=== PATIENT | female | born 1990 | race Caucasian/White ===

== ENCOUNTER 2021-07-03 22:27 | Outpatient (CLI) | payer OTHER ==
[2021-07-04 00:05] VITALS: BP 130/77; PULSE 64; RESP 16; TEMP 97.7
--- NOTE | 2021-07-13 11:14 | P.MSEPDOC ---
Presenting Problems - Arrival Data Date of Arrival on Unit: 07/03/21 Time of Arrival on Unit: 22:30 Mode of Transport: Ambulatory - Complaint OB-Reason for Admission/Chief Complaint: Possible Onset of Labor Comment: contractions since 1399 Medical History - Information : 2 Para: 1 Term: 1 : 0 Abortions: Spontaneous or Elective: 0 Number of Living Children: 1 - Gestational Age Gestational Age by ELKE (wks/days): 38 Weeks and 4 Days Review of Systems - Review of Systems Constitutional: No problems Breast: No problems ENT: No problems Cardiovascular: No problems Respiratory: No problems Gastrointestinal: No problems Genitourinary: No problems Musculoskeletal: No problems Neurological: No problems Skin: No problems Vital Signs - Temperature Temperature: 97.7 F Temperature Source: Oral - Pulse Right Sitting Pulse Rate: 64 - Respirations Respiratory Rate: 16 Oxygen Delivery Method: Room Air O2 Sat by Pulse Oximetry: 100 - Blood Pressure Right Arm Sitting Blood Pressure: 130/77 Blood Pressure Mean: 94 Blood Pressure Source: Automatic Cuff Medical Screen Scoring - Cervical Exam Dilation (cm): 1 Effacement (%): 50 Station: -2 Membranes: Intact - Uterine Contractions Frequency From (mins): 5 Frequency To (mins): 6 - Assessment - Baby A Baseline FHR: 120 Heart Rate - NICHD Category: Category I (Normal) Physician Notification - Physician Notified Physician Notified Date: 07/04/21 Physician Notified Time: 23:20 Physician: Dorothy Maciel Order Received: Yes - Notification Comment Comment: home if no cervical change Maternal Triage Index - Maternal Triage Index Presenting for scheduled procedure w/no complaint: No - Stat/Priority 1 Stat Priority 1: No - Urgent/Priority 2 Urgent Priority 2: No - Prompt/Priority 3 Prompt Priority 3: No - Non-Urgent/Priority 4 Non-Urgent Priority 4: Yes Criteria Met for Priority 4: contractions since 1399 Disposition - Disposition OB Disposition: Discharge to home, Written follow up instructions reviewed Discharge Date: 07/03/21 Discharge Time: 23:55 I agree with the RN Medical Screening Exam: Yes Case reviewed; plan agreed upon as documented in EMR&OBIX.: Yes Diagnosis: False labor
== END 2021-07-03 23:55 | disposition home or self-care (01) ==
LOC: FBPOP 22:27
PROVIDERS: ATTEND Obstetrics & Gynecology
DX: O47.1 False labor at or after 37 completed weeks of gestation (principal); Z3A.38 38 weeks gestation of pregnancy
CPT/HCPCS: 59025; 99213

== ENCOUNTER 2021-07-05 16:22 | Outpatient (CLI) | payer OTHER ==
[2021-07-05] MEDS ORDERED: LACTATED RINGERS 1,000 ML IV SCH (17:45)
[2021-07-05 18:44] VITALS: BP 126/79; PULSE 64; RESP 18; TEMP 96.8
--- NOTE | 2021-08-20 17:57 | P.MSEPDOC ---
Presenting Problems - Arrival Data Date of Arrival on Unit: 07/05/21 Time of Arrival on Unit: 16:22 Mode of Transport: Ambulatory - Complaint OB-Reason for Admission/Chief Complaint: Possible Onset of Labor Comment: pt arrives with contractions that have been on and off since . pt states they are every 2-3 minutes. Medical History - Information : 2 Para: 1 Term: 1 : 0 Abortions: Spontaneous or Elective: 0 Number of Living Children: 1 - Gestational Age Gestational Age by ELKE (wks/days): 38 Weeks and 5 Days Review of Systems - Review of Systems Constitutional: No problems Breast: No problems ENT: No problems Cardiovascular: No problems Respiratory: No problems Gastrointestinal: No problems Genitourinary: No problems Musculoskeletal: No problems Neurological: No problems Skin: No problems Vital Signs - Temperature Temperature: 96.8 F Temperature Source: Temporal Artery Scan - Pulse Right Pulse Oximetery Pulse Rate: 64 Pulse Assessment Method: Pulse Oximetry - Respirations Respiratory Rate: 18 Oxygen Delivery Method: Room Air O2 Sat by Pulse Oximetry: 100 - Blood Pressure Right Arm Blood Pressure: 126/79 Blood Pressure Mean: 94 Blood Pressure Source: Automatic Cuff Medical Screen Scoring - Cervical Exam Dilation (cm): 1.5 Effacement (%): 50 Station: -2 Membranes: Intact - Uterine Contractions Frequency From (mins): 3 Frequency To (mins): 5 Duration From (seconds): 50 Duration To (seconds): 60 Intensity: Mild Resting: Soft to palpation - Assessment - Baby A Baseline FHR: 120 Heart Rate - NICHD Category: Category I (Normal) NST: Reactive Physician Notification - Physician Notified Physician Notified Date: 07/05/21 Physician Notified Time: 17:42 Physician: Emma Dos Santos New Order Received: Yes - Notification Comment Comment: order given for IV hydration x1 Liter LR. Dr Dos Santos called again after bag infused and order received for D/C and for pt to follow up at [facility] on wednesday. Maternal Triage Index - Maternal Triage Index Presenting for scheduled procedure w/no complaint: No - Stat/Priority 1 Stat Priority 1: No - Urgent/Priority 2 Urgent Priority 2: No - Prompt/Priority 3 Prompt Priority 3: No - Non-Urgent/Priority 4 Non-Urgent Priority 4: Yes Criteria Met for Priority 4: 38 5/7 weeks gestation and early labor signs. Disposition - Disposition OB Disposition: Discharge to home Discharge Date: 07/05/21 Discharge Time: 18:30 I agree with the RN Medical Screening Exam: Yes Case reviewed; plan agreed upon as documented in EMR&OBIX.: Yes Diagnosis: FALSE LABOR AT OR AFTER 37 COMPLETED WEEKS OF GESTATION
== END 2021-07-05 18:30 | disposition home or self-care (01) ==
LOC: FBPOP 16:22
PROVIDERS: ATTEND Obstetrics & Gynecology Obstetrics
DX: O47.1 False labor at or after 37 completed weeks of gestation (principal); Z3A.38 38 weeks gestation of pregnancy
CPT/HCPCS: 59025; 99213

== ENCOUNTER 2021-07-07 06:00 | Inpatient (IN) | payer OTHER ==
[2021-07-07] MEDS ORDERED: OXYTOCIN 30 UNITS/500 ML NS 30 UNIT in SALINE 1 500ML.BAG IV SCH ×2 (06:30→16:30)
[2021-07-07] MEDS ORDERED: CARBOPROST TROMETHAMINE 250 MCG/ML 1 ML AMP IM PRN (06:30)
[2021-07-07] MEDS ORDERED: OXYTOCIN 10 UNIT/ML 1 ML VIAL IM PRN (06:30)
[2021-07-07] MEDS ORDERED: METHYLERGONOVINE 0.2 MG/ML 1 ML AMP IM PRN (06:30)
[2021-07-07] MEDS ORDERED: TERBUTALINE 1 MG/ML VIAL SQ PRN (06:30)
[2021-07-07] MEDS ORDERED: LIDOCAINE 1% (PF) 10 MG/ML (30 ML SDV) SQ PRN (06:30)
[2021-07-07] MEDS: LACTATED RINGERS 1,000 ML IV SCH ×2 (06:36→12:46)
[2021-07-07 06:55] LABS: Basophils # (A) 0.1 k/uL (0-0.2); Basophils % (A) 1 %; Eosinophils % (A) 1 %; HCT 39.7 % (34.0-46.0); HGB 13.8 gm/dL (11.4-16.0); Lymphocytes # (A) 1.4 k/uL (1.0-4.8); Lymphocytes % (A) 18 %; MCH 33.2 pg (25.0-35.0); MCHC 34.9 g/dL (31.0-37.0); MCV 95.4 fL (80.0-100.0); Mean Platelet Volume 7.5; Monocytes # (A) 0.5 k/uL (0-1.0); Monocytes % (A) 6 %; Neutrophils # (A) 5.8 k/uL (1.3-7.7); Neutrophils % (A) 74 %; Platelet Count 220 k/uL (150-450); RBC 4.16 m/uL (3.80-5.40); WBC 7.8 k/uL (3.8-10.6)
[2021-07-07] MEDS ORDERED: BUTORPHANOL 1 MG/ML 1 ML VIAL IV PRN (12:05)
[2021-07-07] MEDS ORDERED: fentaNYL (PF) 50 MCG/ML 5 ML AMP ONE (12:41)
[2021-07-07] MEDS ORDERED: SODIUM CHLORIDE 0.9% 100 ML BAG ONE (12:41)
[2021-07-07] MEDS ORDERED: ROPIVACAINE 5MG/ML 20ML VIAL ONE (12:41)
[2021-07-07] MEDS ORDERED: LANOLIN CREAM 5 GM TUBE TOPICAL PRN (16:30)
[2021-07-07] MEDS ORDERED: HYDROCORTISONE 2.5% RECTAL CREAM 30 GM TUBE RECTAL PRN (16:30)
[2021-07-07] MEDS ORDERED: ZOLPIDEM 5 MG TAB PO PRN (16:30)
[2021-07-07] MEDS ORDERED: diphenhydrAMINE 25 MG CAP PO PRN (16:30)
[2021-07-07] MEDS ORDERED: diphenhydrAMINE 50 MG CAP PO PRN (16:30)
[2021-07-07] MEDS ORDERED: BENZOCAINE/MENTHOL SPRAY 1 GM/SPRAY AEROSOL TOPICAL PRN (16:30)
[2021-07-07] MEDS ORDERED: diphenhydrAMINE 50 MG/ML 1 ML VIAL IVP PRN ×2 (16:30)
[2021-07-07] MEDS ORDERED: SIMETHICONE 80 MG CHEWABLE PO PRN (16:30)
--- NOTE | 2021-07-07 16:35 | P.PROBDLV ---
Vaginal Delivery Note - . Vaginal Delivery Note: 31-year-old 2 para 1001 at 39 0/7 weeks that presents to labor and delivery for elective induction of labor. Patient has been receiving routine care which has been essentially uncomplicated. Patient was admitted to labor and delivery and Pitocin induction of labor was begun per hospital protocol. Patient underwent amniotomy and clear fluid was obtained. Patient progressed through labor eventually becoming uncomfortable and requesting epidural placement. Epidural was placed without difficulty by the anesthesia department. Patient progressed through labor eventually progressing to complete dilation. Patient began pushing and had a normal spontaneous vaginal delivery of a viable female infant at 16:16, weight of 6 pounds 4.4 ounces, Apgars of 8 and 9 at one and 5 minutes respectively. After two-minute delayed the umbilical cord was doubly clamped and cut. Placenta was delivered spontaneously intact with a three-vessel cord being noted. On inspection the patient's vaginal vault no lacerations were appreciated. Spontaneous cry was noted at . All counts were correct 2. Patient and tolerated delivery well and are resting comfortably.
--- NOTE | 2021-07-07 16:36 | P.HPOB ---
History of Present Illness H&P Date: 07/07/21 Chief Complaint: IUP @ 39 0/7 weeks 31yo at 39 0/7 weeks, that presents for induction of labor. EDC 07/14/2021 Patient was a late transfer of care to myself. Patient was receiving routine care prior to transferring to the side of the formerly [facility]. Patient has noted good movement. Patient has noted occasional contractions to the weekend. Patient denies vaginal bleeding or loss of fluid. On blood work this patient has a blood type of A+, rubella status immune, hepatitis B surface antigen negative, HIV negative, RPR nonreactive, group beta strep culture negative Review of Systems Constitutional: Reports fatigue, Denies chills, Denies fever Ears, nose, mouth and throat: Denies headache Cardiovascular: Reports leg edema Respiratory: Denies dyspnea Gastrointestinal: Denies nausea, Denies vomiting Genitourinary: Reports Past Medical History Additional Past Medical History / Comment(s): PCOS and chiari malformation History of Any Multi-Drug Resistant Organisms: None Reported Additional Past Surgical History / Comment(s): ACL surgery and surgery related to chiari malformation Past Anesthesia/Blood Transfusion Reactions: No Reported Reaction Past Psychological History: No Psychological Hx Reported Smoking Status: Never smoker Past Alcohol Use History: None Reported Past Drug Use History: None Reported - Past Family History Mother Additional Family Medical History / Comment(s): Chiari malformation Medications and Allergies Home Medications Medication Instructions Recorded Confirmed Type Acetaminophen [Tylenol] 650 mg PO Q4H PRN 07/03/21 07/07/21 History Calcium Carbonate [Calcium] 600 mg PO DAILY 07/03/21 07/07/21 History Pnv No.95/Ferrous Fum/Folic AC 1 each PO DAILY 07/03/21 07/07/21 History [ Multivitamin Tablet] Allergies Allergy/AdvReac Type Severity Reaction Status Date / Time No Known Allergies Allergy Verified 07/07/21 06:29 Exam Osteopathic Statement: *. No significant issues noted on an osteopathic structural exam other than those noted in the History and Physical/Consult. 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 heart tones noted to be category 1 and she is monica every 3 minutes. Results Result Diagrams: 07/07/21 06:35 Assessment and Plan (1) Term Current Visit: Yes Status: Acute Code(s): Z34.90 - ENCNTR FOR SUPRVSN OF NORMAL , UNSP, UNSP TRIMESTER SNOMED Code(s): 08475612 Plan: 31-year-old at 39 0/7 weeks that presents for induction of labor. Patient is admitted to labor and delivery and Pitocin induction of labor was begun. Options for analgesia are discussed with patient including epidural and Stadol. Patient will consider. Anticipate spontaneous vaginal delivery.
[2021-07-07] MEDS: IBUPROFEN ORAL SUSP 100 MG/5 ML CUP PO SCH (17:21)
[2021-07-07] MEDS: IBUPROFEN 600 MG TAB PO SCH ×2 (17:21→19:38)
[2021-07-07] MEDS: SENNOSIDES-DOCUSATE SODIUM 1 EACH TAB PO SCH (19:38)
[2021-07-08] MEDS ORDERED: ACETAMINOPHEN TAB 325 MG TAB PO PRN (00:38)
[2021-07-08] MEDS: IBUPROFEN ORAL SUSP 100 MG/5 ML CUP PO SCH (01:48)
[2021-07-08 01:59] VITALS: RESP 16
[2021-07-08] MEDS: IBUPROFEN 600 MG TAB PO SCH ×2 (08:52→16:16)
[2021-07-08] MEDS: SENNOSIDES-DOCUSATE SODIUM 1 EACH TAB PO SCH (08:52)
--- NOTE | 2021-07-08 09:32 | P.DS ---
Providers Date of admission: 07/07/21 06:07 Expected date of discharge: 07/08/21 Attending physician: Emma Dos Santos Primary care physician: Stated None - Discharge Diagnosis(es) (1) Term Current Visit: Yes Status: Acute (2) S/P section Current Visit: Yes Status: Acute Hospital Course: 31-year-old G2 now P2 status post normal spontaneous vaginal delivery. Patient was admitted yesterday for elective induction of labor. Patient underwent Pitocin induction of labor per hospital protocol. Patient underwent amniotomy and clear fluid was obtained. Patient did become uncomfortable during labor and requested epidural placement. Epidural was placed without difficulty by the anesthesia department. Patient did progressed to complete and had a normal spontaneous vaginal delivery of a viable female at 1616, weight of 6 pounds 4.4 ounces, Apgars of 9 and 9 at one and 5 minutes respectively. No vaginal lacerations were appreciated during delivery. Patient has done well . On this day #1 she is ambulating and voiding without difficulty. She is tolerating a regular diet without nausea or vomiting. She states her pain is well-controlled. She denies concerns. She would like discharge home at 24 hours. Patient Condition at Discharge: Good Plan - Discharge Summary New Discharge Prescriptions: No Action Calcium Carbonate [Calcium] 600 mg PO DAILY Acetaminophen [Tylenol] 650 mg PO Q4H PRN PRN Reason: Pain Pnv No.95/Ferrous Fum/Folic AC [ Multivitamin Tablet] 1 each PO DAILY Discharge Medication List Acetaminophen [Tylenol] 650 mg PO Q4H PRN 07/03/21 [History] Calcium Carbonate [Calcium] 600 mg PO DAILY 07/03/21 [History] Pnv No.95/Ferrous Fum/Folic AC [ Multivitamin Tablet] 1 each PO DAILY 07/03/21 [History] Follow up Appointment(s)/Referral(s): Emma Dos Santos DO [Doctor of Osteopathic Medicine] - 4 Weeks Patient Instructions/Handouts: Vaginal Delivery (DC), Vaginal Delivery (GEN) Discharge Disposition: HOME SELF-CARE
[2021-07-08 16:14] VITALS: BP 122/71; PULSE 72; TEMP 97.8
== END 2021-07-08 18:00 | disposition home or self-care (01) | DRG 807 ==
LOC: 4FBP 06:07
PROVIDERS: ADMIT Obstetrics & Gynecology Obstetrics; ATTEND Obstetrics & Gynecology Obstetrics
PROC: 10E0XZZ Delivery of Products of Conception, External Approach (ICD-10-PCS; principal; 2021-07-07)
PROC: 10907ZC Drainage of Amniotic Fluid, Therapeutic from Products of Conception, Via Natural or Artificial Opening (ICD-10-PCS; principal; 2021-07-07)
PROC: 4A0HXCZ Measurement of Products of Conception, Cardiac Rate, External Approach (ICD-10-PCS; principal; 2021-07-07)
PROC: 3E033VJ Introduction of Other Hormone into Peripheral Vein, Percutaneous Approach (ICD-10-PCS; principal; 2021-07-07)
DX: O99.284 Endocrine, nutritional and metabolic diseases complicating childbirth (principal); Z37.0 Single live birth; O99.354 Diseases of the nervous system complicating childbirth; Q07.00 Arnold-Chiari syndrome without spina bifida or hydrocephalus; E28.2 Polycystic ovarian syndrome; Z3A.39 39 weeks gestation of pregnancy
CPT/HCPCS: 85025; 86850; 86900; 86901

== ENCOUNTER → 2022-04-01 | Outpatient (CLI) | payer OTHER ==
--- NOTE | 2022-04-01 14:34 | XR ---
EXAMINATION TYPE: XR foot complete RT DATE OF EXAM: 04/01/2022 CLINICAL HISTORY: Arthritis of first MTP joint. Pain. TECHNIQUE: Frontal, lateral, and oblique images of the right foot are obtained. COMPARISON: None FINDINGS: There is no acute fracture/dislocation evident in the right foot. Mild narrowing first met atarsophalangeal joint. Some Flexion and varus positioning distal fourth and fifth toes. The overlyin g soft tissue appears unremarkable. IMPRESSION: As above.
== END | disposition home or self-care (01) ==
LOC: RADXRMAIN 14:08
PROVIDERS: ATTEND Internal Medicine
DX: M19.079 Primary osteoarthritis, unspecified ankle and foot (principal)

== ENCOUNTER → 2022-04-15 | Outpatient (CLI) | payer OTHER ==
--- NOTE | 2022-04-15 22:12 | MR ---
EXAMINATION TYPE: MR lumbar spine wo con DATE OF EXAM: 04/15/2022 9:41 PM COMPARISON: Lumbar spine radiographs 12/18/2021.. CLINICAL INDICATION:Female, 31 years old with history of M54.11 Lumbago w/ Sciatica, Rt Side; TECHNIQUE: Multi planar, multi sequence imaging was performed utilizing: T1-weighted, T2-weighted, a nd turbo inversion recovery imaging of the lumbar spine. IV Contrast: None. FINDINGS: Alignment: The lumbar vertebral bodies have preserved heights and alignment. Cord: The conus medullaris and the distal spinal cord appear unremarkable with regards to their signa l intensity and morphology. Bones/Discs: Bone signal is within normal limits. Multilevel degenerative disc disease is noted and most pronounced at the L4 and L5. Disc desiccation at L5-S1 L1-L2: No evidence of significant spinal canal stenosis or neural foraminal stenosis. L2-L3: No evidence of significant spinal canal stenosis or neural foraminal stenosis. L3-L4: No evidence of significant spinal canal stenosis or neural foraminal stenosis. L4-L5: Central protrusion without significant spinal canal stenosis. The neural foramen are patent. L5-S1: Disc bulge and facet joint arthropathy result in mild spinal canal and mild bilateral neural f oraminal stenosis. Other findings: None. IMPRESSION: 1. No evidence of significant spinal canal stenosis or neural foraminal stenosis. 2. L4-L5 central disc herniation without significant spinal canal stenosis. The neural foramen are p atent.
== END | disposition home or self-care (01) ==
LOC: RADMRIMAIN 09:18
PROVIDERS: ATTEND Internal Medicine
DX: M51.16 Intervertebral disc disorders with radiculopathy, lumbar region (principal)
CPT/HCPCS: 72148

== ENCOUNTER 2022-09-22 00:56 | Emergency (ER) | payer OTHER ==
[2022-09-22 01:03] VITALS: RESP 18
[2022-09-22] MEDS ORDERED: KETOROLAC 15 MG/ML 1 ML VIAL IVP STA (03:47)
[2022-09-22 04:34] LABS: Appearance,Urine Clear (Clear); Basophils % (A) 0 %; Bilirubin,Urine Negative (Negative); Blood,Urine Negative (Negative); Color,Urine Light Yellow; Eosinophils # (A) 0.1 k/uL (0-0.7); Eosinophils % (A) 1 %; Glucose,Urine (UA) Negative (Negative); HCT 41.7 % (34.0-46.0); HGB 14.5 gm/dL (11.4-16.0); Ketones,Urine Negative (Negative); Leukocyte Esterase,Urine Negative (Negative); Lymphocytes # (A) 0.8 k/uL (1.0-4.8); Lymphocytes % (A) 13 %; MCH 31.6 pg (25.0-35.0); MCHC 34.7 g/dL (31.0-37.0); MCV 91.1 fL (80.0-100.0); Mean Platelet Volume 7.3; Monocytes # (A) 0.3 k/uL (0-1.0); Monocytes % (A) 5 %; Neutrophils # (A) 4.7 k/uL (1.3-7.7); Neutrophils % (A) 79 %; Nitrite,Urine Negative (Negative); PH, Urine 6.5 (5.0-8.0); Platelet Count 257 k/uL (150-450); Protein,Urine Negative (Negative); RBC 4.57 m/uL (3.80-5.40); RDW 11.9 % (11.5-15.5); Specific Gravity,Urine 1.016 (1.001-1.035); Urobilinogen,Urine <2.0 mg/dL (<2.0)
[2022-09-22 04:49] LABS: ALT 15 U/L (4-34); AST 21 U/L (14-36); African American GFR (CKD) >90 (>60 ml/min/1.73 sqM); Alkaline Phosphatase 62 U/L (38-126); Anion Gap 8 mmol/L; Blood Urea Nitrogen 10 mg/dL (7-17); Calcium 8.8 mg/dL (8.4-10.2); Carbon Dioxide 26 mmol/L (22-30); Chloride 100 mmol/L (98-107); Glucose 109 mg/dL (74-99); Lipase 88 U/L (23-300); Magnesium 1.8 mg/dL (1.6-2.3); Non-African American GFR(CKD) >90 (>60 ml/min/1.73 sqM); Potassium 4.4 mmol/L (3.5-5.1); Sodium 134 mmol/L (137-145); Total Bilirubin 0.4 mg/dL (0.2-1.3); Total Protein 6.7 g/dL (6.3-8.2)
--- NOTE | 2022-09-22 04:51 | ED ---
General Adult HPI - General Chief complaint: Abdominal Pain Stated complaint: ABD PAIN Time Seen by Provider: 09/22/22 03:21 Source: patient Mode of arrival: ambulatory Limitations: no limitations - History of Present Illness Initial comments: This is a 32-year-old female with no past medical history presents emergency department for right lower quadrant abdominal pain. The patient stated over the last 24 hours she had cramping in the lower center part of her abdomen that is now radiated to the right lower quadrant. The patient stated associated nausea without vomiting. The patient stated that the pain has not improved therefore she came to the emergency department for further evaluation and management. The patient was otherwise resting in bed comfortably. The patient denied any fevers and chills. The patient stated that she has never had any issues somewhat to this. - Related Data Home Medications Medication Instructions Recorded Confirmed Acetaminophen [Tylenol] 650 mg PO Q4H PRN 07/03/21 07/07/21 Calcium Carbonate [Calcium] 600 mg PO DAILY 07/03/21 07/07/21 Pnv No.95/Ferrous Fum/Folic AC 1 each PO DAILY 07/03/21 07/07/21 [ Multivitamin Tablet] Previous Rx's Medication Instructions Recorded Ketorolac [Toradol] 10 mg PO TID #30 tab 09/22/22 Ondansetron Odt [Zofran Odt] 4 mg PO Q8HR PRN #20 tab 09/22/22 Allergies Allergy/AdvReac Type Severity Reaction Status Date / Time No Known Allergies Allergy Verified 09/22/22 01:01 Review of Systems ROS Statement: Those systems with pertinent positive or pertinent negative responses have been documented in the HPI. ROS Other: All systems not noted in ROS Statement are negative. Past Medical History Additional Past Medical History / Comment(s): PCOS and chiari malformation History of Any Multi-Drug Resistant Organisms: None Reported Additional Past Surgical History / Comment(s): ACL surgery and surgery related to chiari malformation Past Anesthesia/Blood Transfusion Reactions: No Reported Reaction Past Psychological History: No Psychological Hx Reported Smoking Status: Never smoker Past Alcohol Use History: Occasional Past Drug Use History: None Reported - Past Family History Mother Additional Family Medical History / Comment(s): Chiari malformation General Exam Limitations: no limitations General appearance: alert, in no apparent distress Head exam: Present: atraumatic, normocephalic, normal inspection Eye exam: Present: normal appearance, PERRL Pupils: Present: normal accommodation ENT exam: Present: normal exam, normal oropharynx, mucous membranes moist Neck exam: Present: normal inspection, full ROM Respiratory exam: Present: normal lung sounds bilaterally Cardiovascular Exam: Present: regular rate, normal rhythm, normal heart sounds GI/Abdominal exam: Present: tenderness (TTP in the RLQ), normal bowel sounds Extremities exam: Present: normal inspection, full ROM Back exam: Present: normal inspection, full ROM Neurological exam: Present: alert, oriented X3, CN II-XII intact Psychiatric exam: Present: normal affect, normal mood Skin exam: Present: warm, dry Course Vital Signs 09/22/22 01:01 Temperature 97.7 F Pulse Rate 63 Respiratory 18 Rate Blood Pressure 143/89 O2 Sat by Pulse 98 Oximetry Medical Decision Making - Medical Decision Making Was pt. sent in by a medical professional or institution (, PA, RADIOGRAPHY TECHNICIAN, urgent care, hospital, or [facility]...) When possible be specific @ -No Did you speak to anyone other than the patient for history (EMS, parent, family, police, friend...)? What history was obtained from this source @ -No Did you review nursing and triage notes (agree or disagree)? Why? @ -I reviewed and agree with nursing and triage notes Were old charts reviewed (outside hosp., previous admission, EMS record, old EKG, old radiological studies, urgent care reports/EKG's, [facility] records)? Report findings @ -No old charts were reviewed Differential Diagnosis (chest pain, altered mental status, abdominal pain women, abdominal pain men, vaginal bleeding, weakness, fever, dyspnea, syncope, headache, dizziness, GI bleed, back pain, seizure, CVA, palpatations, mental health)? @ -Acute appendicitis, small bowel obstruction, abdominal wall muscle strain EKG interpreted by me (3pts min.). @ -None X-rays interpreted by me (1pt min.). @ -None done CT interpreted by me (1pt min.). @ -CT of the abdomen and pelvis with IV contrast was obtained and was in terpreted by myself showing no convincing CT evidence for acute appendicitis. There was no significant acute finding seen to account for the patient's clinical symptoms. There was an incidental 4.1 cm left ovarian teratoma otherwise was an unremarkable computed tomography scan. U/S interpreted by me (1pt. min.). @ -None done What testing was considered but not performed or refused? (CT, X-rays, U/S, labs)? Why? @ -None What meds were considered but not given or refused? Why? @ -None Did you discuss the management of the patient with other professionals (fatuma trujillo i.e. , PA, RADIOGRAPHY TECHNICIAN, lab, RT, psych nurse, secondary social studies teacher, animal treatment investigator, teacher, boat officer, major case detective)? Give summary @ -No Was smoking cessation discussed for >3mins.? @ -No Was critical care preformed (if so, how long)? @ -No Were there social determinants of health that impacted care today? How? (Homelessness, low income, unemployed, alcoholism, drug addiction, transportatio n, low edu. Level, literacy, decrease access to med. care, care home, rehab)? @ -No Was there de-escalation of care discussed even if they declined (Discuss DNR or withdrawal of care, Hospice)? DNR status @ -No What co-morbidities impacted this encounter? (DM, HTN, Smoking, COPD, CAD, Cancer, CVA, ARF, Chemo, Hep., AIDS, mental health diagnosis, sleep apnea, morbid obesity)? @ -None Was patient admitted / discharged? Hospital course, mention meds given and route, prescriptions, significant lab abnormalities, going to OR and other pertinent info. @ -The patient was seen and evaluated in the emergency department. Physical exam, the patient was resting in bed with right lower quadrant abdominal pain. Vital signs on evaluation were within normal limits and stable. Laboratory workup was obtained and was negative. Computed tomography scan was also obtained however did not show any etiology for the patient's symptoms. The patient did receive Toradol and a reevaluation stated that the pain was well- controlled with this medication. The patient did not have a known etiology for her right lower quadrant abdominal pain but could be possibly secondary to a mus cular strain. The patient was given a prescription for Toradol and Zofran to be taken at home and told to continue to monitor her symptoms closely. She was advised report back to the emergency department if they became acutely worse. The patient was agreeable to this and all her questions were answered. The patient was discharged home in stable condition. Undiagnosed new problem with uncertain prognosis? @ -No Drug Therapy requiring intensive monitoring for toxicity (Heparin, Nitro, Insulin, Cardizem)? @ -No Were any procedures done? @ -No Diagnosis/symptom? @ -Abdominal pain, NOS Acute, or Chronic, or Acute on Chronic? @ -Acute Uncomplicated (without systemic symptoms) or Complicated (systemic symptoms)? @ -Uncomplicated Side effects of treatment? @ -No Exacerbation, Progression, or Severe Exacerbation? @ -No Poses a threat to life or bodily function? How? (Chest pain, USA, CT, pneumonia, PE, COPD, DKA, ARF, appy, cholecystitis, CVA, Diverticulitis, Homicidal, Suicidal, threat to staff... and all critical care pts) @ -No - Lab Data Result diagrams: 09/22/22 04:03 09/22/22 04:03 Lab Results 09/22/22 09/22/22 09/22/22 Range/Units 04:03 04:03 04:03 WBC 6.0 (3.8-10.6) k/uL RBC 4.57 (3.80-5.40) m/uL Hgb 14.5 (11.4-16.0) gm/dL Hct 41.7 (34.0-46.0) % MCV 91.1 (80.0-100.0) fL MCH 31.6 (25.0-35.0) pg MCHC 34.7 (31.0-37.0) g/dL RDW 11.9 (11.5-15.5) % Plt Count 257 (150-450) k/uL MPV 7.3 Neutrophils % 79 % Lymphocytes % 13 % Monocytes % 5 % Eosinophils % 1 % Basophils % 0 % Neutrophils # 4.7 (1.3-7.7) k/uL Lymphocytes # 0.8 L (1.0-4.8) k/uL Monocytes # 0.3 (0-1.0) k/uL Eosinophils # 0.1 (0-0.7) k/uL Basophils # 0.0 (0-0.2) k/uL Sodium 134 L (137-145) mmol/L Potassium 4.4 (3.5-5.1) mmol/L Chloride 100 (98-107) mmol/L Carbon Dioxide 26 (22-30) mmol/L Anion Gap 8 mmol/L BUN 10 (7-17) mg/dL Creatinine 0.55 (0.52-1.04) mg/dL Est GFR (CKD-EPI)AfAm >90 (>60 ml/min/1.73 sqM) Est GFR (CKD-EPI)NonAf >90 (>60 ml/min/1.73 sqM) Glucose 109 H (74-99) mg/dL Calcium 8.8 (8.4-10.2) mg/dL Magnesium 1.8 (1.6-2.3) mg/dL Total Bilirubin 0.4 (0.2-1.3) mg/dL AST 21 (14-36) U/L ALT 15 (4-34) U/L Alkaline Phosphatase 62 (38-126) U/L Total Protein 6.7 (6.3-8.2) g/dL Albumin 4.0 (3.5-5.0) g/dL Lipase 88 (23-300) U/L Urine Color Urine Appearance (Clear) Urine pH (5.0-8.0) Ur Specific [place] (1.001-1.035) Urine Protein (Negative) Urine Glucose (UA) (Negative) Urine Ketones (Negative) Urine Blood (Negative) Urine Nitrite (Negative) Urine Bilirubin (Negative) Urine Urobilinogen (<2.0) mg/dL Ur Leukocyte Esterase (Negative) Urine HCG, Qual Not Detected (Not Detectd) 09/22/22 Range/Units 04:03 WBC (3.8-10.6) k/uL RBC (3.80-5.40) m/uL Hgb (11.4-16.0) gm/dL Hct (34.0-46.0) % MCV (80.0-100.0) fL MCH (25.0-35.0) pg MCHC (31.0-37.0) g/dL RDW (11.5-15.5) % Plt Count (150-450) k/uL MPV Neutrophils % % Lymphocytes % % Monocytes % % Eosinophils % % Basophils % % Neutrophils # (1.3-7.7) k/uL Lymphocytes # (1.0-4.8) k/uL Monocytes # (0-1.0) k/uL Eosinophils # (0-0.7) k/uL Basophils # (0-0.2) k/uL Sodium (137-145) mmol/L Potassium (3.5-5.1) mmol/L Chloride (98-107) mmol/L Carbon Dioxide (22-30) mmol/L Anion Gap mmol/L BUN (7-17) mg/dL Creatinine (0.52-1.04) mg/dL Est GFR (CKD-EPI)AfAm (>60 ml/min/1.73 sqM) Est GFR (CKD-EPI)NonAf (>60 ml/min/1.73 sqM) Glucose (74-99) mg/dL Calcium (8.4-10.2) mg/dL Magnesium (1.6-2.3) mg/dL Total Bilirubin (0.2-1.3) mg/dL AST (14-36) U/L ALT (4-34) U/L Alkaline Phosphatase (38-126) U/L Total Protein (6.3-8.2) g/dL Albumin (3.5-5.0) g/dL Lipase (23-300) U/L Urine Color Light Yellow Urine Appearance Clear (Clear) Urine pH 6.5 (5.0-8.0) Ur Specific [place] 1.016 (1.001-1.035) Urine Protein Negative (Negative) Urine Glucose (UA) Negative (Negative) Urine Ketones Negative (Negative) Urine Blood Negative (Negative) Urine Nitrite Negative (Negative) Urine Bilirubin Negative (Negative) Urine Urobilinogen <2.0 (<2.0) mg/dL Ur Leukocyte Esterase Negative (Negative) Urine HCG, Qual (Not Detectd) Disposition Clinical Impression: Abdominal pain, Muscle strain Disposition: HOME SELF-CARE Condition: Stable Instructions (If sedation given, give patient instructions): Abdominal Pain (ED) Prescriptions: Ketorolac [Toradol] 10 mg PO TID #30 tab Ondansetron Odt [Zofran Odt] 4 mg PO Q8HR PRN #20 tab PRN Reason: Nausea Is patient prescribed a controlled substance at d/c from ED?: No Referrals: Jigna Dick MD [Primary Care Provider] - 1-2 days Time of Disposition: 06:00
--- NOTE | 2022-09-22 06:00 | CT ---
EXAMINATION TYPE: CT abdomen pelvis w con DATE OF EXAM: 09/22/2022 HISTORY: Right lower quadrant pain CT DLP: 682mGycm Automated Exposure Control for Dose Reduction was Utilized. CONTRAST: CT scan of the abdomen and pelvis is performed without oral and with IV Contrast, patient injected wi th 100 mL of Isovue 300. COMPARISON: None. FINDINGS: LUNG BASES: No significant abnormality is appreciated. LIVER/GB: No significant abnormality is appreciated. PANCREAS: No significant abnormality is seen. SPLEEN: No significant abnormality is seen. ADRENALS: No significant abnormality is seen. KIDNEYS: No significant abnormality is seen. BOWEL: Suboptimal evaluation of bowel without enteric contrast and patient having little intra-abdomi nal fat. No abnormal small or large bowel dilatation is seen. There is low lying cecum into the right pelvis. Normal or abnormal appendix is not seen with certainty but there is no inflammatory change o r significant fluid/fat stranding at this level to suggest acute appendicitis. UTERUS/ADNEXA: Anteverted uterus. Left ovary has oval circumscribed 4.1 x 2.4 cm mass of soft tissue and predominantly fat density consistent with teratoma axial image 70. Trace free fluid in the pelvic cul-de-sac axial image 70 is nonspecific. LYMPH NODES: No greater than 1cm abdominal or pelvic lymph nodes are appreciated. OSSEOUS STRUCTURES: Moderate disc space narrowing L5-S1 level with vacuum disc phenomena. Small poste rior disc herniation L4-L5 level sagittal image 75. OTHER: No significant additional abnormality is seen. IMPRESSION: No convincing CT evidence for acute appendicitis. No significant acute finding is seen to account for patient's clinical symptoms. Incidental 4.1 cm left ovarian teratoma otherwise unremarka ble study.
[2022-09-22 06:35] VITALS: BP 123/79; PULSE 66; TEMP 97.3
== END 2022-09-22 06:34 | disposition home or self-care (01) ==
LOC: EC 00:56
DX: S39.011A Strain of muscle, fascia and tendon of abdomen, initial encounter (principal); X58.XXXA Exposure to other specified factors, initial encounter
CPT/HCPCS: 36415; 80053; 83690; 83735; 85025; 81003; 81025; 74177; 99284; 96374; J1885; Q9967

== ENCOUNTER 2023-05-25 14:22 | Outpatient (CLI) | payer OTHER ==
[2023-05-25 15:36] LABS: Appearance,Urine Clear (Clear); Bilirubin,Urine Negative (Negative); Blood,Urine Negative (Negative); Color,Urine Colorless; Glucose,Urine (UA) Negative (Negative); Ketones,Urine Negative (Negative); Leukocyte Esterase,Urine Negative (Negative); Nitrite,Urine Negative (Negative); PH, Urine 5.5 (5.0-8.0); Protein,Urine Negative (Negative); Specific Gravity,Urine 1.016 (1.001-1.035); Urobilinogen,Urine <2.0 mg/dL (<2.0)
[2023-05-25 16:54] VITALS: BP 123/63; PULSE 82; RESP 16; TEMP 97.3
--- NOTE | 2023-06-02 14:00 | P.MSEPDOC ---
Presenting Problems - Arrival Data Date of Arrival on Unit: 05/25/23 Time of Arrival on Unit: 14:22 Mode of Transport: Ambulatory - Complaint OB-Reason for Admission/Chief Complaint: Possible Onset of Labor Comment: Pt states favian oscar x 2 days, flying to [place] tomorrow for work and wanted to make sure she is stable. Medical History - Information : 3 Para: 2 Term: 2 Number of Living Children: 2 - Gestational Age Gestational Age by ELKE (wks/days): 28 Weeks and 4 Days Review of Systems - Review of Systems Constitutional: No problems Breast: No problems ENT: No problems Cardiovascular: No problems Respiratory: No problems Gastrointestinal: No problems Genitourinary: No problems Musculoskeletal: No problems Neurological: No problems Skin: No problems Vital Signs - Temperature Temperature: 97.3 F Temperature Source: Temporal Artery Scan - Pulse Right Sitting Brachial Pulse Rate: 82 Pulse Assessment Method: Automatic Cuff - Respirations Respiratory Rate: 16 Oxygen Delivery Method: Room Air O2 Sat by Pulse Oximetry: 99 - Blood Pressure Right Arm Sitting Blood Pressure: 123/63 Blood Pressure Mean: 83 Blood Pressure Source: Automatic Cuff Medical Screen Scoring - Cervical Exam Dilation (cm): 0 Effacement (%): 20 Membranes: Intact - Assessment - Baby A Baseline FHR: 140 Heart Rate - NICHD Category: Category I (Normal) NST: Reactive Physician Notification - Physician Notified Physician Notified Date: 05/25/23 Physician Notified Time: 16:00 Physician: Emma Dos Santos New Order Received: Yes - Notification Comment Comment: Kevyn whitfield\Dr. Dos Santos, advsd of pts arrival to triage, 28 5/7, favian oscar for several days, increased in pressure and cramping in lower abdomen. Ab soft and non tender. Cat 1 FHT, reactive NST. Order rec'd to send UA, FFN and SVE. If SVE firm/thick FFN does not need to be sent. 1552: Kevyn whitfield\Dr. Dos Santos, reviewed pts UA and SVE. Order rec'd to discharge pt home, to follow up as scheduled. Maternal Triage Index - Maternal Triage Index Presenting for scheduled procedure w/no complaint: No - Stat/Priority 1 Stat Priority 1: No - Urgent/Priority 2 Urgent Priority 2: Yes Provider Notified: Emma Dos Santos Provider Notified Time: 14:45 Criteria Met for Priority 2: 29wk, r/o labor Disposition - Disposition OB Disposition: Discharge to home, Written follow up instructions reviewed Discharge Date: 05/25/23 Discharge Time: 16:08 I agree with the RN Medical Screening Exam: Yes Case reviewed; plan agreed upon as documented in EMR&OBIX.: Yes Diagnosis: RELATED CONDITIONS, UNSPECIFIED, THIRD TRIMESTER
== END 2023-05-25 16:08 | disposition home or self-care (01) ==
LOC: FBPOP 14:22
PROVIDERS: ATTEND Obstetrics & Gynecology Obstetrics
DX: O47.03 False labor before 37 completed weeks of gestation, third trimester (principal); Z3A.28 28 weeks gestation of pregnancy; Z79.82 Long term (current) use of aspirin
CPT/HCPCS: 59025; 81003; 99213

== ENCOUNTER 2023-08-03 07:07 | Outpatient (CLI) | payer OTHER ==
[2023-08-03 10:29] VITALS: BP 121/70; PULSE 76; RESP 16; TEMP 96.8
--- NOTE | 2023-08-11 18:26 | P.MSEPDOC ---
Presenting Problems - Arrival Data Date of Arrival on Unit: 08/03/23 Time of Arrival on Unit: 07:16 Mode of Transport: Ambulatory - Complaint OB-Reason for Admission/Chief Complaint: Possible Onset of Labor Comment: pt arrived c/o mild contractions and states shes scheduled for an induction in the am Medical History - Information : 3 Para: 2 Term: 2 : 0 Abortions: Spontaneous or Elective: 0 Number of Living Children: 2 - Gestational Age Gestational Age by ELKE (wks/days): 38 Weeks and 6 Days Review of Systems - Review of Systems Constitutional: No problems Breast: No problems ENT: No problems Cardiovascular: No problems Respiratory: No problems Gastrointestinal: No problems Genitourinary: No problems Musculoskeletal: No problems Neurological: No problems Skin: No problems Vital Signs - Temperature Temperature: 96.8 F Temperature Source: Temporal Artery Scan - Pulse Right Brachial Pulse Rate: 76 Pulse Assessment Method: Automatic Cuff - Respirations Respiratory Rate: 16 Oxygen Delivery Method: Room Air O2 Sat by Pulse Oximetry: 100 - Blood Pressure Right Arm Blood Pressure: 121/70 Blood Pressure Mean: 87 Blood Pressure Source: Automatic Cuff Medical Screen Scoring - Cervical Exam Dilation (cm): 2.5 Membranes: Intact - Uterine Contractions Intensity: Mild Resting: Soft to palpation - Assessment - Baby A Baseline FHR: 130 Heart Rate - NICHD Category: Category I (Normal) NST: Reactive Physician Notification - Physician Notified Physician Notified Date: 08/03/23 Physician Notified Time: 10:00 Physician: DR KAUR New Order Received: Yes - Notification Comment Comment: MAY DISCHARGE TO HOME WITH INSTRUCTIONS Maternal Triage Index - Non-Urgent/Priority 4 Non-Urgent Priority 4: Yes Criteria Met for Priority 4: pt arrived to r/o labor pt scheduled for induction tomorrow morning Disposition - Disposition OB Disposition: Discharge to home Discharge Date: 08/03/23 Discharge Time: 10:06 I agree with the RN Medical Screening Exam: Yes Case reviewed; plan agreed upon as documented in EMR&OBIX.: Yes Diagnosis: FALSE LABOR AT OR AFTER 37 COMPLETED WEEKS OF GESTATION
== END 2023-08-03 10:10 | disposition home or self-care (01) ==
LOC: FBPOP 07:07
PROVIDERS: ATTEND Obstetrics & Gynecology Obstetrics
DX: O47.1 False labor at or after 37 completed weeks of gestation (principal); Z3A.38 38 weeks gestation of pregnancy
CPT/HCPCS: 59025; 99213

== ENCOUNTER 2023-08-04 06:00 | Inpatient (IN) | payer OTHER ==
[2023-08-04] MEDS ORDERED: TRANEXAMIC 1,000 MG/100ML-NACL 1,000 MG in EMPTY BAG 1 BAG IV PRN (06:30)
[2023-08-04] MEDS ORDERED: METHYLERGONOVINE 0.2 MG/ML 1 ML AMP IM PRN (06:30)
[2023-08-04] MEDS ORDERED: CARBOPROST TROMETHAMINE 250 MCG/ML 1 ML AMP IM PRN (06:30)
[2023-08-04] MEDS ORDERED: TERBUTALINE 1 MG/ML VIAL SQ PRN (06:30)
[2023-08-04] MEDS ORDERED: miSOPROStoL 200 MCG TAB PO PRN (06:30)
[2023-08-04] MEDS ORDERED: LIDOCAINE 0.5% (PF) 5 MG/ML (50 ML SDV) SQ PRN (06:30)
[2023-08-04] MEDS ORDERED: OXYTOCIN 10 UNIT/ML 1 ML VIAL IM PRN (06:30)
[2023-08-04] MEDS: LACTATED RINGERS 1,000 ML IV SCH (06:58)
[2023-08-04 06:59] LABS: Basophils % (A) 0 %; Eosinophils # (A) 0.1 k/uL (0-0.7); Eosinophils % (A) 1 %; HCT 37.8 % (34.0-46.0); HGB 12.6 gm/dL (11.4-16.0); Lymphocytes % (A) 10 %; MCH 30.8 pg (25.0-35.0); MCHC 33.3 g/dL (31.0-37.0); MCV 92.5 fL (80.0-100.0); Mean Platelet Volume 7.6; Monocytes # (A) 0.6 k/uL (0-1.0); Monocytes % (A) 6 %; Neutrophils # (A) 8.6 k/uL (1.3-7.7); Neutrophils % (A) 83 %; Platelet Count 236 k/uL (150-450); RBC 4.08 m/uL (3.80-5.40); RDW 12.9 % (11.5-15.5); WBC 10.3 k/uL (3.8-10.6)
[2023-08-04] MEDS: OXYTOCIN 30 UNITS/500 ML NS 30 UNIT in SALINE 1 500ML.BAG IV SCH (06:59)
[2023-08-04] MEDS ORDERED: NALBUPHINE 10 MG/ML (10 ML MDV) IV PRN (09:53)
[2023-08-04] MEDS ORDERED: fentaNYL (PF) 50 MCG/ML 5 ML AMP ONE (11:12)
[2023-08-04] MEDS ORDERED: SODIUM CHLORIDE 0.9% 250 ML BAG ONE (11:12)
[2023-08-04] MEDS ORDERED: ROPIVACAINE 5 MG/ML 30 ML VIAL ONE (11:12)
[2023-08-04] MEDS: ONDANSETRON 4 MG/2 ML VIAL IVP STA (12:15)
[2023-08-04] MEDS ORDERED: LANOLIN CREAM 1 GM TUBE TOPICAL PRN (15:22)
[2023-08-04] MEDS ORDERED: ZOLPIDEM 5 MG TAB PO PRN (15:22)
[2023-08-04] MEDS ORDERED: HYDROCORTISONE 2.5% RECTAL CREAM 30 GM TUBE RECTAL PRN (15:22)
[2023-08-04] MEDS ORDERED: diphenhydrAMINE 50 MG/ML 1 ML VIAL IVP PRN ×2 (15:22)
[2023-08-04] MEDS ORDERED: diphenhydrAMINE 50 MG CAP PO PRN (15:22)
[2023-08-04] MEDS ORDERED: SIMETHICONE 80 MG CHEWABLE PO PRN (15:22)
[2023-08-04] MEDS ORDERED: BENZOCAINE/MENTHOL SPRAY 1 GM/SPRAY AEROSOL TOPICAL PRN (15:22)
[2023-08-04] MEDS ORDERED: diphenhydrAMINE 25 MG CAP PO PRN (15:22)
--- NOTE | 2023-08-04 15:26 | P.PROBDLV ---
Vaginal Delivery Note - . Vaginal Delivery Note: 33-year-old G2, P1 at 39 weeks of that presents for induction of labor. Patient was admitted and Pitocin induction of labor was begun. Amniotomy was performed and clear fluid was obtained. Patient was counseled on options for analgesia and elected epidural. Epidural was placed without difficulty by the anesthesia department. Patient made good progress toward complete. Once completely dilated patient began pushing. Bladder was drained with a red rubber catheter during pushing for approximately 500 cc of clear yellow urine. After drainage of the bladder patient had a normal spontaneous vaginal delivery of a viable female at 1511, weight is pending as remains on maternal abdomen. After 2-minute delay the umbilical cord was doubly clamped and cut. The placenta was delivered spontaneously intact with a three-vessel cord being note d. Uterus was noted to be firm and below the umbilicus. No lacerations were appreciated. After vaginal vault was inspected a large gush of blood was appreciated uterus firmed after fundal massage. Estimated blood loss 200 cc All counts were to be correct x 2 at the end of the delivery. Patient and tolerated delivery well and are resting comfortably.
[2023-08-04] MEDS: IBUPROFEN 600 MG TAB PO SCH (17:15)
[2023-08-04] MEDS: ACETAMINOPHEN TAB 325 MG TAB PO PRN (20:15)
[2023-08-04] MEDS: SENNOSIDES-DOCUSATE SODIUM 1 EACH TAB PO SCH (20:16)
[2023-08-05] MEDS: PRENATAL VIT-IRON-FOLIC ACID 1 EACH TABLET PO SCH (09:39)
--- NOTE | 2023-08-05 11:10 | P.DS ---
Providers Date of admission: 08/04/23 06:09 Expected date of discharge: 08/05/23 Attending physician: Emma Dos Santos Primary care physician: Stated None - Discharge Diagnosis(es) (1) Term Current Visit: No Status: Acute (2) Status post vaginal delivery Current Visit: Yes Status: Acute Hospital Course: This is a 33-year-old G2 now P2 that presented to labor and delivery yesterday 08/03 for scheduled induction of labor. Patient was admitted and Pitocin induction of labor was begun. Amniotomy was performed and clear fluid was obtained. Patient did elect epidural for analgesia.. Patient made good progress toward complete began pushing and had a normal spontaneous vaginal delivery of a viable female infant at 1511, weight of 6 pounds 12 ounces, Apgars of 9 and 9 at 1 and 5 minutes respectively. No vaginal lacerations were appreciated upon inspection after delivery. Patient has done well postoperatively. She is ambulating and voiding without difficulty. She is tolerating a regular diet without nausea or vomiting. States her pain is well-controlled. She would like discharge home in 24 hours. Patient Condition at Discharge: Good Plan - Discharge Summary New Discharge Prescriptions: No Action Aspirin 81 mg PO DAILY Docusate [Colace] 100 mg PO DAILY PRN PRN Reason: Constipation Cetirizine HCl [Zyrtec] 10 mg PO DAILY Pnv No.95/Ferrous Fum/Folic AC [ Multivitamin Tablet] 1 each PO DAILY Acetaminophen [Tylenol] 325 mg PO Q4H PRN PRN Reason: Headache Discharge Medication List Pnv No.95/Ferrous Fum/Folic AC [ Multivitamin Tablet] 1 each PO DAILY 07/03/21 [History] Aspirin 81 mg PO DAILY 05/25/23 [History] Cetirizine HCl [Zyrtec] 10 mg PO DAILY 08/03/23 [History] Docusate [Colace] 100 mg PO DAILY PRN 08/03/23 [History] Acetaminophen [Tylenol] 325 mg PO Q4H PRN 08/04/23 [History] Follow up Appointment(s)/Referral(s): Emma Dos Santos DO [Doctor of Osteopathic Medicine] - 1 Week Patient Instructions/Handouts: Vaginal Delivery (GEN), Vaginal Delivery (DC) Activity/Diet/Wound Care/Special Instructions: No intercourse, tampons or douching. No heavy lifting greater than a gallon of milk. No driving for two weeks. Call with any fever, shakes or chills, with any pain not alleviated by over the counter meds, or with any quesions or concerns. Discharge Disposition: HOME SELF-CARE
--- NOTE | 2023-08-05 11:14 | P.HPOB ---
History of Present Illness H&P Date: 08/04/23 Chief Complaint: IUP at 39 weeks, SGA 33-year-old G2, P1 at 39 weeks of that presents for induction of labor. Patient has been noting chronic contractions throughout the , and desires induction of labor. Patient has noted good movement denies loss of fluid or vaginal bleeding. On blood work this patient is a blood type of A+, rubella status immune, HIV negative, hepatitis B surface antigen negative, RPR is nonreactive, group B strep culture is negative. Past Medical History Additional Past Medical History / Comment(s): PCOS and chiari malformation History of Any Multi-Drug Resistant Organisms: None Reported Additional Past Surgical History / Comment(s): ACL surgery and surgery related to chiari malformation Past Anesthesia/Blood Transfusion Reactions: No Reported Reaction Past Psychological History: No Psychological Hx Reported Smoking Status: Never smoker Past Alcohol Use History: Occasional Past Drug Use History: None Reported - Past Family History Mother Additional Family Medical History / Comment(s): Chiari malformation Medications and Allergies Home Medications Medication Instructions Recorded Confirmed Type Pnv No.95/Ferrous Fum/Folic AC 1 each PO DAILY 07/03/21 08/04/23 History [ Multivitamin Tablet] Aspirin 81 mg PO DAILY 05/25/23 08/04/23 History Cetirizine HCl [Zyrtec] 10 mg PO DAILY 08/03/23 08/04/23 History Docusate [Colace] 100 mg PO DAILY PRN 08/03/23 08/04/23 History Acetaminophen [Tylenol] 325 mg PO Q4H PRN 08/04/23 08/04/23 History Allergies Allergy/AdvReac Type Severity Reaction Status Date / Time No Known Allergies Allergy Verified 08/03/23 07:21 Exam Osteopathic Statement: *. No significant issues noted on an osteopathic structural exam other than those noted in the History and Physical/Consult. Vital Signs Temp Pulse Resp BP Pulse Ox 08/04/23 06:14 96.7 F L 79 16 112/69 100 Intake and Output 08/03/23 08/04/23 08/04/23 22:59 06:59 14:59 Other: Weight 77.564 kg Targeted physical exam is performed this date General is well-nourished well- developed female in no acute distress, breathing is noted nonlabored, heart has a regular and rhythm, abdomen is gravid and appropriate for gestational age, on cervical exam she is 3/50/-2 station amniotomy was performed and clear fluid was obtained. heart tones are category 1 and she is monica irregularly. Results Result Diagrams: 08/04/23 04:35 Abnormal Lab Results - Last 24 Hours (Table) 08/04/23 Range/Units 04:35 Neutrophils # 8.6 H (1.3-7.7) k/uL Assessment and Plan (1) Term Current Visit: No Status: Acute Code(s): Z34.90 - ENCNTR FOR SUPRVSN OF NORMAL , UNSP, UNSP TRIMESTER SNOMED Code(s): 44470403 Plan: 33-year-old G2, P1 at 39 weeks of presents for scheduled induction of labor. Patient is admitted and Pitocin induction of labor has begun. Patient is counseled on options for analgesia including epidural, nitrous, Nubain. Patient will consider.
[2023-08-05 12:17] VITALS: BP 124/80; PULSE 76; RESP 17; TEMP 98.5
== END 2023-08-05 16:14 | disposition home or self-care (01) | DRG 807 ==
LOC: 4FBP 06:09
PROVIDERS: ADMIT Obstetrics & Gynecology Obstetrics; ATTEND Obstetrics & Gynecology Obstetrics
PROC: 10E0XZZ Delivery of Products of Conception, External Approach (ICD-10-PCS; principal; 2023-08-04)
PROC: 10907ZC Drainage of Amniotic Fluid, Therapeutic from Products of Conception, Via Natural or Artificial Opening (ICD-10-PCS; principal; 2023-08-04)
PROC: 3E033VJ Introduction of Other Hormone into Peripheral Vein, Percutaneous Approach (ICD-10-PCS; principal; 2023-08-04)
DX: O36.5930 Maternal care for other known or suspected poor fetal growth, third trimester, not applicable or unspecified (principal); O99.284 Endocrine, nutritional and metabolic diseases complicating childbirth; E28.2 Polycystic ovarian syndrome; Z87.798 Personal history of other (corrected) congenital malformations; Z79.82 Long term (current) use of aspirin; Z79.899 Other long term (current) drug therapy; Z3A.39 39 weeks gestation of pregnancy; Z37.0 Single live birth
CPT/HCPCS: 85025; 86850; 86900; 86901

== ENCOUNTER 2024-02-03 06:17 | Day surgery (SDC) | payer OTHER ==
[2024-01-28 08:54] VITALS: BMI 23.3
[~2024-02-03 06:17] MED LIST: DEXAMETHASONE SOD PHOSPHATE 4 MG/ML 1 ML VIAL IV ONE; Pre Op ABX Message 1 EACH MISC MISCELLANE ONE; SCOPOLAMINE 1 MG/72 HR PATCH TRANSDERM ONE
[2024-02-03] MEDS: IV FLUID CONTINUATION 1,000 ML IV ONE ×3 (07:04→11:54)
[2024-02-03] MEDS: LACTATED RINGERS 1,000 ML IV SCH (07:05)
[2024-02-03] MEDS: fentaNYL (PF) 50 MCG/ML 2 ML AMP IV PRN (07:18)
[2024-02-03] MEDS: MIDAZOLAM 2 MG/2 ML VIAL IV ONE (07:18)
[2024-02-03] MEDS: ONDANSETRON 4 MG/2 ML VIAL IVP ONE (07:28)
[2024-02-03] MEDS ORDERED: SUCCINYLCHOLINE CHLORIDE 200 MG/10 ML VIAL IV ONE (07:43)
[2024-02-03] MEDS ORDERED: GLYCOPYRROLATE 0.2 MG/ML 2 ML VIAL ONE (07:43)
[2024-02-03] MEDS ORDERED: ROCURONIUM 10 MG/ML (5 ML VIAL) IV ONE (07:43)
[2024-02-03] MEDS ORDERED: fentaNYL (PF) 50 MCG/ML 2 ML AMP ONE (07:43)
[2024-02-03] MEDS ORDERED: ROPIVACAINE 5 MG/ML 30 ML VIAL ONE (07:43)
[2024-02-03] MEDS ORDERED: SODIUM CHLORIDE 0.9% (PF) 10 ML VIAL ONE (07:43)
[2024-02-03] MEDS ORDERED: ACETAMINOPHEN IV (For NPO) 1,000 MG/100 ML VIAL ONE (07:43)
[2024-02-03] MEDS ORDERED: LIDOCAINE 1% INJ 10MG/ML (20 ML MDV) ONE (07:43)
[2024-02-03] MEDS ORDERED: NEOSTIGMINE 1 MG/ML 10 ML VIAL ONE (07:43)
[2024-02-03] MEDS ORDERED: PROPOFOL 10 MG/ML 20 ML VIAL IV ONE (07:43)
[2024-02-03] MEDS: SODIUM CHLORIDE 0.9% 100 ML with ceFAZolin 2,000 MG IV ONE (07:48)
[2024-02-03] MEDS: BUPIVACAINE (PF) 0.25% 30 ML VIAL SQ ONE ×2 (08:15→08:50)
[2024-02-03 09:13] VITALS: TEMP 97.9
[2024-02-03] MEDS: HYDROmorphone 0.5 MG/0.5 ML SYRINGE IVP PRN (09:17)
--- NOTE | 2024-02-03 11:42 | P.OP ---
Date of Procedure: 02/03/24 Preoperative Diagnosis: Left ovarian dermoid Postoperative Diagnosis: Same Procedure(s) Performed: Robotic assisted left salpingo-oophorectomy Anesthesia: GETA Surgeon: Emam Dos Santos Locomotive Repairer Diesel #1: Maya Taylor Estimated Blood Loss (ml): 5 IV fluids (ml): 800 Urine output (ml): 100 (Clear yellow) Pathology: other (Left ovary and fallopian tube) Condition: stable Disposition: PACU Indications for Procedure: 4 cm left ovarian dermoid Operative Findings: Mobile uterus normal. Normal appearing right ovary, left ovary with dermoid cyst Description of Procedure: Patient was taken back to the operating suite where general anesthesia was obtained without difficulty by the anesthesia department. She was prepped and draped in the normal sterile fashion in the dorsolithotomy position. A Hoskins catheter was placed under sterile technique. A sponge stick was placed into the vaginal vault as a means to manipulate the uterus throughout the procedure. Attention was then turned to the patient's abdomen where approximately 2 fingerbreadths above the above like us a small skin incision is made. Through this incision the Veress needle is placed. Once the Veress needle was deemed to be in the appropriate position with a drop of CO2 pressure with the insufflation of CO2 gas CO2 insufflation was allowed to occur. Approximately 3 L of CO2 gas was used to obtain pneumoperitoneum. At this time the 8 mm trocar and sleeve with the laparoscope in place was placed through the skin incision toward the pneumoperitoneum. The above-noted findings are visualized. The additional port sites are now placed at 10 cm lateral and 3 cm inferiorly midline port these are operative ports with the da Brigitte. An 8 mm port is placed under direct visualization. In the left upper quadrant a 12 mm skin incision is made and a 12 mm trocar and sleeve is placed under direct visualization. At this time the da Brigitte was docked in the usual fashion. In the right operative arm the monopolar scissors is placed in the left operative arm the bipolar forceps is placed. Attention was turned to the patient's left adnexa. The left fallopian tube was elevated the infundibulopelvic ligament was coagulated distally proximally and divided this continued through the broad and toward the utero- ovarian ligament the utero-ovarian ligament was visualized coagulated distally approximately and the left adnexa was transected with the dermoid cyst in place. The left adnexa was placed in an Endo Catch bag. The cyst and the Endo Catch bag was then removed from the 12 mm trocar and sleeve. The pedicle site was inspected and found to be hemostatic. The da Brigitte was undocked in the usual fashion at this time. The 12 mm incision site, the fascia was extended to deliver the Endo Catch bag this was closed with 0 Vicryl in a running fashion. Skin incisions were closed with 4-0 Vicryl in a subcuticular fashion. Attention then turned to the Hoskins catheter which is noted to be draining clear yellow urine, this was removed without difficulty. The sponge stick was removed from the vaginal vault. All counts were noted be correct x 2. Patient tolerated procedure well and was taken the recovery room awake in stable condition.
--- NOTE | 2024-02-03 11:43 | P.HPOB ---
History of Present Illness H&P Date: 02/03/24 Chief Complaint: left ovarian dermoid cyst 33 yo that presents for left salpingoophorectomy, she has had the dermoid cyst dx prior to her last . she has an IUD in place for contraception. 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 Review of Systems Constitutional: Denies chills, Denies fatigue, Denies fever Ears, nose, mouth and throat: Denies headache Cardiovascular: Denies leg edema Respiratory: Denies dyspnea Gastrointestinal: Denies nausea, Denies vomiting Genitourinary: Reports Past Medical History Past Medical History: No Reported History Additional Past Medical History / Comment(s): PCOS. Chiari malformation. Hx migraines, none in 4 1/2 yrs. Hx precancerous spot an forearm treated with topical chemo. History of Any Multi-Drug Resistant Organisms: None Reported Past Surgical History: Orthopedic Surgery Additional Past Surgical History / Comment(s): Bilateral ACL repair, surgery for chiari malformation. Past Anesthesia/Blood Transfusion Reactions: Motion Sickness Additional Past Anesthesia/Blood Transfusion Reaction / Comment(s): Slow to wake up. Smoking Status: Never smoker - Past Family History Mother Additional Family Medical History / Comment(s): Chiari malformation. Medications and Allergies Home Medications Medication Instructions Recorded Confirmed Type Cetirizine HCl [Zyrtec] 10 mg PO DAILY PRN 08/03/23 02/03/24 History Ibuprofen [Motrin Ib] 200 mg PO Q8H PRN 01/28/24 02/03/24 History Post Vitamin 1 tab PO DAILY 01/28/24 02/03/24 History Allergies Allergy/AdvReac Type Severity Reaction Status Date / Time No Known Allergies Allergy Verified 02/03/24 06:50 Exam Osteopathic Statement: *. No significant issues noted on an osteopathic structural exam other than those noted in the History and Physical/Consult. Vital Signs Temp Pulse Resp BP Pulse Ox 02/03/24 06:45 97.0 F L 64 18 109/59 99 Intake and Output 02/02/24 02/03/24 02/03/24 22:59 06:59 14:59 Intake Total 100 Balance 100 Intake: IV 100 Other: Weight 68.4 kg In general this is a well-nourished well-developed non female in no acute distress, breathing is nonlabored, heart has a regular rate and rhythm, abdomen is soft and nontender, on genitourinary exam external genitalia is noted to be normal for age, vaginal mucosa is noted to be pink and well-rugated, the cervix is without lesion IUD strings are visualized at the cervical os, the uterus is noted to be mobile and nontender left adnexal mass is appreciated consistent with ultrasound findings of dermoid cyst. Assessment and Plan (1) Dermoid cyst of ovary Current Visit: Yes Status: Acute Code(s): D27.9 - BENIGN NEOPLASM OF UNSPECIFIED OVARY SNOMED Code(s): 474914520 Plan: 33-year-old 3 para 3 that presents for left salpingo-oophorectomy with known dermoid cyst. Patient is counseled on surgery and postoperative care. Risks of surgery are reviewed with patient and all questions are answered. Patient states understanding and wishes to proceed.
[2024-02-03 12:36] VITALS: BP 121/75; PULSE 61; RESP 18
--- NOTE | 2024-02-03 13:11 | P.ANPRN ---
Procedure Note - Anesthesia - Nerve Block Performed Bilateral Erector Spinae Single Time Out Performed: Yes ([id number]) Date of Procedure: 02/03/24 Procedure Start Time: Procedure Stop Time: Location of Patient: PreOp Indication: Acute Post-Operative Pain, Requested by Surgeon Specifically requested for management of pain by : Emma Dos Santos Sedation Type: Sedate with meaningful contact maintained Preparation: Sterile Prep Position: Sitting Catheter: None Needle Types: Pajunk Needle Gauge: 21 Ultrasound used to visualize needle placement: Yes Ultrasound used to observe medication spread: Yes Injectate: 0.5% Ropivacaine (see comment for volume) (15cc +10cc nacl pf each side) Blood Aspirated: No Pain Paresthesia on Injection Noted: No Resistance on Injection: Normal Image Stored and Saved: Yes Events: Uneventful and Well Tolerated
== END 2024-02-03 13:57 | disposition home or self-care (01) ==
LOC: OR 06:17
PROVIDERS: ATTEND Obstetrics & Gynecology Obstetrics
DX: D36.9 Benign neoplasm, unspecified site
CPT/HCPCS: 64999; 81025; 88305; 88307